=== PATIENT | male | born 1995 | race Hispanic/Latino ===

== ENCOUNTER 2018-12-28 21:55 | Emergency (ER) | payer BC, MEDICAID | END 2018-12-28 23:04 | disposition home or self-care (01) | LOC: EDH 21:55 | DX: S60.221A Contusion of right hand, initial encounter (principal); W22.01XA Walked into wall, initial encounter; Y93.89 Activity, other specified; Y92.009 Unspecified place in unspecified non-institutional (private) residence as the place of occurrence of the external cause; Y99.8 Other external cause status | CPT/HCPCS: 73130 ==

== ENCOUNTER 2020-03-29 19:18 | Emergency (ER) | payer BC | END 2020-03-29 20:37 | disposition home or self-care (01) | LOC: EDH 19:18 | DX: R11.0 Nausea (principal); R53.1 Weakness; R53.83 Other fatigue; Z20.828 Contact with and (suspected) exposure to other viral communicable diseases; Z79.899 Other long term (current) drug therapy | CPT/HCPCS: 93005; 99284; U0003; 36415 ==